=== PATIENT | male | born 1960 | race Caucasian/White ===

== ENCOUNTER 2018-01-30 22:27 | Inpatient (IN) | payer OTHER ==
[~2018-01-30] VITALS: Ht 188 cm; Wt 79.5 kg
[~2018-01-30 22:27] MED LIST: ADVAIR 250/501 DISK IH; ADVIL200 MG PO; IBUPROFEN800 MG PO; NEURONTIN600 MG PO; NO DOZ200 MG; PERCOCET 10/1 TABLET PO; TYLENOL EXTRA500 MG PO
[2018-01-31] MEDS ORDERED: NABUMETONE500 MG PO (10:22)
[2018-01-31 10:29] VITALS: BP 144/90
[2018-01-31 18:25] VITALS: BP 132/79
[2018-01-31 19:53] VITALS: BP 118/85
[2018-02-01] VITALS: BP 135/69
[2018-02-01 00:19] VITALS: BP 135/69
[2018-02-01 04:01] VITALS: BP 118/66
[2018-02-01 07:55] VITALS: BP 128/55
[2018-02-01 16:30] VITALS: BP 140/71
[2018-02-02 00:19] VITALS: BP 117/64
[2018-02-02 07:44] VITALS: BP 134/64
[2018-02-02 15:44] VITALS: BP 148/77
[2018-02-02] MEDS ORDERED: CYCLOBENZAPRINE10 MG PO (16:06)
[2018-02-02] MEDS ORDERED: PERCOCET 10/1 TABLET PO (16:06)
[2018-02-02] MEDS ORDERED: OXYCONTIN10 MG PO (16:06)
[2018-02-02] MEDS ORDERED: DIAZEPAM5 MG PO (16:06)
== END 2018-02-02 16:40 | disposition home or self-care (01) | DRG 455 ==
LOC: ENRESERV 22:27 → 2SOUTH 01-31 09:57 → ENRESERV 01-31 16:30 → 3EAST 01-31 18:05
DX: M48.061 Spinal stenosis, lumbar region without neurogenic claudication (principal); M43.17 Spondylolisthesis, lumbosacral region; M51.17 Intervertebral disc disorders with radiculopathy, lumbosacral region; M54.9 Dorsalgia, unspecified; M79.606 Pain in leg, unspecified; F17.200 Nicotine dependence, unspecified, uncomplicated; M81.0 Age-related osteoporosis without current pathological fracture; Z88.8 Allergy status to other drugs, medicaments and biological substances; M51.16 Intervertebral disc disorders with radiculopathy, lumbar region; M41.9 Scoliosis, unspecified
CPT/HCPCS: 72100; 76000; 86850; 86900; 86901; 94640; 94640 76; C1821; J0131; J0690; J1100; J1170; J1580; J2405; J2710; J2930; J3010; J3370; J3480; J7643; S0020